=== PATIENT | male | born 1975 | race Two or more races ===

== ENCOUNTER 2018-04-18 01:45 | Emergency (ER) | payer BC ==
[~2018-04-18] VITALS: Ht 172.7 cm; Wt 68.0 kg
[2018-04-18] MEDS ORDERED: ATENOLOL100 MG ORAL ×2 (01:52→02:12)
[2018-04-18] MEDS ORDERED: ROPINIROLE HCL2 MG PO (01:52)
[2018-04-18] MEDS ORDERED: AMLODIPINE BESYL5 MG ORAL (01:52)
[2018-04-18] MEDS ORDERED: WELLBUTRIN XL150 MG ORAL (01:52)
[2018-04-18] MEDS ORDERED: VISTARIL50 MG ORAL (01:52)
[2018-04-18] MEDS ORDERED: BUPROPION XL300 MG ORAL (02:12)
[2018-04-18] MEDS ORDERED: NORVASC5 MG ORAL (02:12)
--- NOTE | 2018-04-18 02:12 | Emergency Room Report ---
History of Present Illness General Chief Complaint: Palpitations Source: Patient Present Illness HPI Is a 42-year-old male with a history of polysubstance abuse. He presents with chief complaint of palpitation. He is currently out of his Wellbutrin trazodone 's and of the medication. He presents with chief complaint of palpitation for the last day. Denies any fever chills but denies any nausea vomiting. [place] heart beating fast. [place] anxious. Denies any other complaint. No chest pain. No diaphoresis. Allergies: Coded Allergies: No Known Allergies (Unverified , 04/18/18) Patient History Past Medical History: see triage record, HTN, psych hx Past Surgical History: other Pertinent Family History: none Social History: Denies: smoking, drug use - history of drug use Immunizations: other Reviewed Nursing Documentation: PMH: Agreed; PSxH: Agreed Nursing Documentation-PMH Past Medical History: No History, Except For Hx Hypertension: Yes Review of Systems Eye: Denies: eye pain, blurred vision ENT: Denies: ear pain, nose congestion, throat swelling Respiratory: Denies: cough, shortness of breath Cardiovascular: Reports: palpitations Gastrointestinal: Denies: abdominal pain, diarrhea, nausea, vomiting Musculoskeletal: Denies: back pain, joint pain Skin: Denies: rash Neurological: Denies: headache, numbness Endocrine: Denies: increased thirst, increased urine Hematologic/Lymphatic: Denies: easy bruising All Other Systems: negative except mentioned in HPI Physical Exam Vital Signs Date Time Temp Pulse Resp B/P (MAP) Pulse Ox O2 Delivery O2 Flow Rate FiO2 04/18/18 01:47 98.2 128 16 158/99 96 98.2 vitals with tachycardia and high blood pressure Sp02 EP Interpretation: reviewed, normal General Appearance: well appearing, no apparent distress, alert Head: normocephalic, atraumatic Eyes: bilateral eye PERRL, bilateral eye EOMI ENT: hearing grossly normal, normal pharynx Neck: full range of motion, supple, no meningismus Respiratory: chest non-tender, lungs clear, normal breath sounds Cardiovascular #1: regular rate, rhythm, no murmur, tachycardia Gastrointestinal: normal bowel sounds, non tender, no mass, no organomegaly, no bruit, non-distended Musculoskeletal: back normal, gait/station normal, normal range of motion Psychiatric: mood/affect normal Skin: warm/dry Medical Decision Making Diagnostic Impression: Primary Impression: Palpitations Additional Impressions: Anxiety attack Hypertension Qualified Codes: I10 - Essential (primary) hypertension ER Course Patient presents with palpitation may have anxiety and withdrawal symptoms. No evidence of ACS, PE, dissection to name a few. [place] better now. We'll discharge home. EKG Diagnostic Results Rate: tachycardiac Rhythm: NSR ST Segments: no acute changes Rhythm Strip Diag. Results Rhythm Strip Time: 02:10 EP Interpretation: yes Rate: 110 Rhythm: NSR, no PVC's, no ectopy Last Vital Signs Date Time Temp Pulse Resp B/P (MAP) Pulse Ox O2 Delivery O2 Flow Rate FiO2 04/18/18 01:47 98.2 128 16 158/99 96 98.2 Status: improved Disposition: HOME, SELF-CARE Condition: Stable Scripts Bupropion Hcl* (WELLBUTRIN*) 300 Mg Tab.er.24h 300 MG ORAL DAILY, #7 TAB 0 Refills Prov: Warren Carey MD 04/18/18 Amlodipine Besylate (Norvasc) 5 Mg Tablet 5 MG ORAL DAILY, #7 TAB Prov: Warren Carey MD 04/18/18 Atenolol* (TENORMIN*) 100 Mg Tablet 100 MG ORAL DAILY, #7 TAB Prov: Warren Carey MD 04/18/18 Referrals: NON PHYSICIAN (PCP) Patient Instructions: Palpitations Additional Instructions: Follow-up with your doctor within the week for recheck. Follow-up with your psychiatrist today as scheduled. Return if worse. Warren Carey MD Apr 18, 2018 02:12
[2018-04-18] MEDS ORDERED: LORazepam Inj 2mg/ml 1ml IV ONE ×2 (02:15→04:00)
[2018-04-18 02:21] VITALS: BP 147/98
[2018-04-18 02:26] LABS: APPEARANCE,URINE CLEAR; BILIRUBIN, URINE NEGATIVE (NEGATIVE); COLOR,URINE PALE YELLOW; GLUCOSE, URINE (UA) NEGATIVE (NEGATIVE); KETONES,URINE NEGATIVE (NEGATIVE); LEUKOCYTE ESTERASE ,URINE NEGATIVE (NEGATIVE); NITRITE,URINE NEGATIVE (NEGATIVE); PH,URINE 6 (4.5-8.0); PROTEIN,URINE NEGATIVE (NEGATIVE); UROBILINOGEN,URINE NORMAL MG/DL (0.0-1.0)
[2018-04-18 02:30] LABS: ANION GAP 10 mmol/L (5-15); BASOPHILS % (AUTO) 0.7 % (0.0-2.0); BLOOD UREA NITROGEN 17 mg/dL (7-18); CALCIUM 9.2 MG/DL (8.5-10.1); CARBON DIOXIDE 26 MMOL/L (21-32); CHLORIDE 104 MMOL/L (98-107); EOSINOPHILS % (AUTO) 1.1 % (0.0-3.0); HEMATOCRIT 41.8 % (42.0-52.0); HEMOGLOBIN 14.6 G/DL (14.2-18.0); LYMPHOCYTES % (AUTO) 20.9 % (20.0-45.0); MEAN CORPUSCULAR VOLUME 85 FL (80-99); MONOCYTES % (AUTO) 6.4 % (1.0-10.0); NEUTROPHILS % (AUTO) 70.9 % (45.0-75.0); PLATELET COUNT 229 K/UL (150-450); POTASSIUM 3.5 MMOL/L (3.5-5.1); RED BLOOD COUNT 4.92 M/UL (4.70-6.10); RED CELL DISTRIBUTION WIDTH 11.3 % (11.6-14.8); SODIUM 140 MMOL/L (136-145); WHITE BLOOD COUNT 12.6 K/UL (4.8-10.8)
[2018-04-18 02:44] LABS: CKMB 1.1 NG/ML (0.0-3.6); CREATINE KINASE 282 U/L (26-308)
[2018-04-18] MEDS ORDERED: Metoprolol 5mg/5ml Inj IVP ONE (03:00)
[2018-04-18 03:11] VITALS: BP 147/95
[2018-04-18 03:16] VITALS: BP 152/99
[2018-04-18 04:03] VITALS: BP 131/96
[2018-04-18 04:15] VITALS: BP 131/96
--- NOTE | 2018-04-19 07:53 | Cardiology Report ---
APPROVED REPORT EKG Measurement Heart [id number] Sinus tachycardia Possible Left atrial enlargement Borderline ECG
== END 2018-04-18 04:16 | disposition home or self-care (01) ==
LOC: EMR 02:04
DX: R00.2 Palpitations (principal); F41.9 Anxiety disorder, unspecified; I10 Essential (primary) hypertension
CPT/HCPCS: 36415; 80048; 80307; 81001; 82550; 82553; 84484; 85025; 93005; 96361; 96374; 96375; 96376; 99284